=== PATIENT | male | born 1940 | race Caucasian/White ===

== ENCOUNTER → 2016-08-05 | Outpatient (CLI) | payer MEDICARE, BC ==
[~2016-08-05] MED LIST: ASPIRIN 32325 MG/TAB PO; BETAPACE 80MG80 MG PO; LIPITOR 40MG TA40 MG; VASOTEC 2.2.5 MG/TAB PO
[2016-08-05 13:45] LABS: HEMOGLOBIN 14.7 g/dl (13.5-18.0)
[2016-08-05 16:04] LABS: HEMATOCRIT 41.3 % (42.0-52.0)
== END ==
LOC: COL.LAB 12:54
PROVIDERS: Family Medicine
DX: E83.118 Other hemochromatosis (principal)

== ENCOUNTER → 2016-09-30 | Outpatient (CLI) | payer MEDICARE, BC ==
[2016-09-30 13:38] LABS: HEMOGLOBIN 15.5 g/dl (13.5-18.0)
== END ==
LOC: COL.LAB 12:54
DX: E83.118 Other hemochromatosis (principal); E83.119 Hemochromatosis, unspecified

== ENCOUNTER → 2016-11-25 | Outpatient (CLI) | payer MEDICARE, BC ==
[2016-11-25 13:48] LABS: HEMOGLOBIN 14.9 g/dl (13.5-18.0)
== END ==
LOC: COL.LAB 09-16 16:11
PROVIDERS: Family Medicine
DX: Z01.89 Encounter for other specified special examinations (principal)

== ENCOUNTER → 2017-01-20 | Outpatient (CLI) | payer MEDICARE, BC ==
[2017-01-20 13:38] LABS: HEMOGLOBIN 15.1 g/dl (13.5-18.0)
[2017-01-20 13:40] LABS: HEMATOCRIT 40.8 % (42.0-52.0)
== END ==
LOC: COL.LAB 12:43
PROVIDERS: Family Medicine
DX: E83.119 Hemochromatosis, unspecified (principal)

== ENCOUNTER → 2017-04-13 | Outpatient (CLI) | payer MEDICARE, BC ==
[2017-04-13 15:19] LABS: HEMOGLOBIN 14.5 g/dl (13.5-18.0)
== END ==
LOC: COL.LAB 14:44
PROVIDERS: Family Medicine
DX: E83.119 Hemochromatosis, unspecified (principal)

== ENCOUNTER → 2017-06-15 | Outpatient (CLI) | payer MEDICARE, BC ==
[2017-06-15 13:37] LABS: HEMOGLOBIN 14.6 g/dl (13.5-18.0)
[2017-06-15 13:42] LABS: HEMATOCRIT 39.7 % (42.0-52.0)
== END ==
LOC: COL.LAB 12:57
PROVIDERS: Family Medicine
DX: E83.119 Hemochromatosis, unspecified (principal)

== ENCOUNTER → 2017-08-10 | Outpatient (CLI) | payer MEDICARE, BC ==
[2017-08-10 13:28] LABS: HEMOGLOBIN 15.3 g/dl (13.5-18.0)
[2017-08-10 13:33] LABS: HEMATOCRIT 41.8 % (42.0-52.0)
== END ==
LOC: COL.LAB 08:38
PROVIDERS: Family Medicine
DX: E83.119 Hemochromatosis, unspecified (principal)

== ENCOUNTER → 2017-10-26 | Outpatient (CLI) | payer MEDICARE, BC ==
[2017-10-26 10:53] LABS: HEMOGLOBIN 15.3 g/dl (13.5-18.0)
[2017-10-26 11:42] LABS: HEMATOCRIT 41.6 % (42.0-52.0)
== END ==
LOC: COL.LAB 09:49
PROVIDERS: Family Medicine
DX: E83.119 Hemochromatosis, unspecified (principal)

== ENCOUNTER → 2018-01-04 | Outpatient (CLI) | payer MEDICARE, BC | LOC: COL.LAB 12-28 15:53 | DX: Z01.89 Encounter for other specified special examinations (principal) ==

== ENCOUNTER → 2018-01-11 | Outpatient (CLI) | payer MEDICARE, BC ==
[2018-01-11 13:37] LABS: HEMOGLOBIN 15.4 g/dl (13.5-18.0)
[2018-01-11 14:22] LABS: HEMATOCRIT 41.3 % (42.0-52.0)
== END ==
LOC: COL.LAB 01-10 12:52
PROVIDERS: Family Medicine
DX: E83.119 Hemochromatosis, unspecified (principal)

== ENCOUNTER → 2018-03-15 | Outpatient (CLI) | payer MEDICARE, BC ==
[2018-03-15 14:56] LABS: HEMOGLOBIN 14.8 g/dl (13.5-18.0)
[2018-03-15 15:09] LABS: HEMATOCRIT 39.6 % (42.0-52.0)
== END ==
LOC: COL.LAB 13:53
PROVIDERS: Family Medicine
DX: E83.119 Hemochromatosis, unspecified (principal)